=== PATIENT | male | born 1955 | race Caucasian/White ===

== ENCOUNTER 2017-05-12 18:59 | Emergency (ER) | payer OTHER ==
[~2017-05-12] VITALS: Ht 188 cm; Wt 113.4 kg
[2017-05-12 19:10] VITALS: BP 139/69
[2017-05-12 19:57] LABS: CALCIUM 9.4 mg/dL (8.5-10.1); CREATININE 1.2 mg/dL (0.7-1.3); GFR 61.8; POTASSIUM 4.3 mmol/L (3.5-5.1)
[2017-05-12 20:03] LABS: ALBUMIN 3.9 g/dL (3.4-5.0); DIRECT BILIRUBIN 0.1 mg/dL (0.0-0.2); TOTAL BILIRUBIN 0.2 mg/dL (0.2-1.0); TOTAL PROTEIN 7.6 g/dL (6.4-8.2)
[2017-05-12 20:08] LABS: INR 1.1 (0.8-1.1); PROTHROMBIN TIME PATIENT 13.5 SEC (11.7-14.0)
--- NOTE | 2017-05-12 20:10 | RAD ---
CT head without contrast History: Seizure. Comparison: None. Exposure: One or more of the following individualized dose reduction techniques were utilized for this examination: 1. Automated exposure control 2. Adjustment of the mA and/or kV according to patient size 3. Use of iterative reconstruction technique Procedure: Axial images are obtained of the head from the skull base through the vertex without IV contrast. Findings: The ventricles and sulci are normal for the patient's age. No mass-effect, intracranial mass, midline shift, hemorrhage or obvious acute infarction is identified. Basilar cisterns are patent. Bone windows demonstrate no significant calvarial abnormality. The visualized paranasal sinuses appear clear. Impression: 1. No acute intracranial process. Electronically signed by: Conor Cohn MD (05/12/2017 8:07 PM) [facility]
[2017-05-12 20:54] LABS: BASO % 0 % (0-3); EOS % 1 % (0-3); HEMATOCRIT 39.8 % (39.0-53.0); HEMOGLOBIN 13.6 g/dL (13.0-17.5); LYMPH # 1.1 x10^3/uL (1.0-4.8); LYMPH % 7 % (24-48); MEAN CORPUSCULAR HEMOGLOBIN 30 pg (25-35); MEAN CORPUSCULAR HGB CONC 34 g/dL (31-37); MEAN CORPUSCULAR VOLUME 87 fL (79-100); MONO % 8 % (0-9); NEUT % 85 % (31-73); PLATELET COUNT 244 x10^3/uL (140-400); RED BLOOD COUNT 4.55 x10^6/uL (4.30-5.70); RED CELL DISTRIBUTION WIDTH 13.2 % (11.5-14.5); WHITE BLOOD COUNT 15.7 x10^3/uL (4.0-11.0)
--- NOTE | 2017-05-12 21:06 | PHYS DOC ---
Past Medical History Past Medical History: High Cholesterol, Hypertension, Seizure Additional Past Surgical Histo: right shoulder x 3 total; left foot Alcohol Use: Rarely Drug Use: None Adult General Chief Complaint Chief Complaint: SEIZURE HPI HPI 61-year-old male presenting to the emergency department today with a witnessed reported seizure at home. He has a history of having seizures in the past about 5 years ago where he had 2 consecutive seizures and was placed on Dilantin however after a long period of not having seizures was taking off the medication. The is here with him who witnessed the seizure who reports him getting very stiff for approximately a minute. Afterwards the patient was postictal. He then was feeling much better. He denies head injury. Prior to this he has been feeling well. He denies any other complaints. Onset today. Location brain. Duration intermittent. No alleviating or exacerbating factors present. Review of systems is negative for chest pain, shortness of breath, nausea vomiting fevers chills. He denies any recent head trauma. All other review of systems is negative unless otherwise noted in history of present illness. ED course: 61-year-old male presenting to the emergency department today for seizure-like activity. Patient was afebrile with mild tachycardia upon examination. Pertinent physical examination shows a normal neurologic examination. Head CT obtained which was unremarkable. Blood work unremarkable. I discussed the case with Dr. Gotti who recommended initiating the patient on Keppra 500 twice a day follow-up with him in clinic within the next week. The patient was then discharged home in stable condition to follow up with their primary care physician over the next 2-3 days. They were to return if their symptoms worsened or if they were concerned for any reason. [id number] discharge instructions and return precautions were given. Patient's questions were answered to their satisfaction. Patient is comfortable plan. Review of Systems Review of Systems SEE ABOVE. Allergies Allergies Allergies Coded Allergies Type Severity Reaction Last Updated Verified levofloxacin Allergy Intermediate Swelling 05/12/17 Yes niacin Allergy Intermediate Swelling 05/12/17 Yes Physical Exam Physical Exam SEE ABOVE Constitutional: Well developed, well nourished, no acute distress, non-toxic appearance. [] HENT: Normocephalic, atraumatic, bilateral external ears normal, oropharynx moist, no oral exudates, nose normal. [] no abrasions, lacerations, echymosis or evidence of trauma to the head or neck. Eyes: PERRLA, EOMI, conjunctiva normal, no discharge. [] Neck: Normal range of motion, no tenderness, supple, no stridor. [] Cardiovascular:Heart rate regular rhythm, no murmur [] Lungs & Thorax: Bilateral breath sounds clear to auscultation [] Abdomen: Bowel sounds normal, soft, no tenderness, no masses, no pulsatile masses. [] Skin: Warm, dry, no erythema, no rash. [] Back: No tenderness, no CVA tenderness. [] Extremities: No tenderness, no cyanosis, no clubbing, ROM intact, no edema. [] Neurologic: Mental status: Awake oriented and alert x3 Cranial nerves: Extraocular movements intact, eyebrows florina bilaterally smile symmetric, uvula elevation, shoulder shrug intact, tongue protrusion normal DTRs: 2+ Sensation: equal and normal in all extremities Strength: 5/5 in upper and lower extremities bilaterally Psychologic: Affect normal, judgement normal, mood normal. [] Current Patient Data Vital Signs Vital Signs Date Time Temp Pulse Resp B/P (MAP) Pulse Ox O2 Delivery O2 Flow Rate FiO2 05/12/17 19:10 97.2 104 20 139/69 (92) 95 Room Air 97.2 Lab Values Laboratory Tests Test 05/12/17 19:15 05/12/17 20:40 Prothrombin Time 13.5 SEC (11.7-14.0) Prothrombin Time INR 1.1 (0.8-1.1) PTT 27 SEC (24-38) Sodium Level 138 mmol/L (136-145) Potassium Level 4.3 mmol/L (3.5-5.1) Chloride Level 102 mmol/L (98-107) Carbon Dioxide Level 25 mmol/L (21-32) Anion Gap 11 (6-14) Blood Urea Nitrogen 15 mg/dL (8-26) Creatinine 1.2 mg/dL (0.7-1.3) Estimated GFR (Cockcroft-Gault) 61.8 Glucose Level 120 mg/dL (70-99) H Lactic Acid Level 4.7 mmol/L (0.4-2.0) *H Calcium Level 9.4 mg/dL (8.5-10.1) Total Bilirubin 0.2 mg/dL (0.2-1.0) Direct Bilirubin 0.1 mg/dL (0.0-0.2) Aspartate Amino Transferase (AST) 23 U/L (15-37) Alanine Aminotransferase (ALT) 32 U/L (16-63) Alkaline Phosphatase 87 U/L (46-116) Total Protein 7.6 g/dL (6.4-8.2) Albumin 3.9 g/dL (3.4-5.0) White Blood Count 15.7 x10^3/uL (4.0-11.0) H Red Blood Count 4.55 x10^6/uL (4.30-5.70) Hemoglobin 13.6 g/dL (13.0-17.5) Hematocrit 39.8 % (39.0-53.0) Mean Corpuscular Volume 87 fL (79-100) Mean Corpuscular Hemoglobin 30 pg (25-35) Mean Corpuscular Hemoglobin Concent 34 g/dL (31-37) Red Cell Distribution Width 13.2 % (11.5-14.5) Platelet Count 244 x10^3/uL (140-400) Neutrophils (%) (Auto) 85 % (31-73) H Lymphocytes (%) (Auto) 7 % (24-48) L Monocytes (%) (Auto) 8 % (0-9) Eosinophils (%) (Auto) 1 % (0-3) Basophils (%) (Auto) 0 % (0-3) Neutrophils # (Auto) 13.3 x10^3uL (1.8-7.7) H Lymphocytes # (Auto) 1.1 x10^3/uL (1.0-4.8) Monocytes # (Auto) 1.2 x10^3/uL (0.0-1.1) H Eosinophils # (Auto) 0.1 x10^3/uL (0.0-0.7) Basophils # (Auto) 0.0 x10^3/uL (0.0-0.2) Segmented Neutrophils % 84 % (35-66) H Lymphocytes % 7 % (24-48) L Monocytes % 8 % (0-10) Eosinophils % 1 % (0-5) Platelet Estimate Adequate (ADEQUATE) Laboratory Tests 05/12/17 20:40 Laboratory Tests 05/12/17 19:15 EKG EKG [] Radiology/Procedures Radiology/Procedures [] Course & Med Decision Making Course & Med Decision Making Pertinent Labs and Imaging studies reviewed. (See chart for details) [] Dragon Disclaimer Dragon Disclaimer This electronic medical record was generated, in whole or in part, using a voice recognition dictation system. Departure Departure Impression: Primary Impression: Seizure Disposition: HOME, SELF-CARE Condition: STABLE Referrals: NO PCP (PCP) CHARITY HIRSCH MD Patient Instructions: Seizure, Adult Additional Instructions: Follow-up with our neurologist Dr. Gotti in 7 days. Thank you for allowing us to participate in your care today. Call your Primary Doctor tomorrow and inform them of your visit today. If you do not have a primary care provider you can ask for a list of our primary care providers. Return to the emergency department you have any new or concerning findings. This should be evaluated by the primary care physician and any necessary consulting services for continued management within a few days after discharge. Return to emergency room if you have any new or concerning symptoms including but not limited to fever, chills, nausea, vomiting, intractable pain, any new rashes, chest pain, shortness of air, uncontrolled bleeding, difficulty breathing, and/or vision loss. Scripts Levetiracetam (KEPPRA) 500 Mg Tablet 1 TAB PO BID, #20 TAB 0 Refills Prov: CARLO ZHU MD 05/12/17 CARLO ZHU MD May 12, 2017 21:06
[2017-05-12] MEDS ORDERED: LEVE500T56 PO (21:09)
[2017-05-12 21:35] LABS: % EOS 1 % (0-5); PLT ESTIMATE ADEQUATE (ADEQUATE)
--- NOTE | 2017-05-13 07:21 | EKG ---
[facility] [address] [place] [address] Test Date: 2017-05-12 Test Time: 19:20:14 Pat Name: GUTIERREZ KEYS Department: Room: Gender: M [employer] C[employer] Operator: : [id number] Requested By: CARLO ZHU Order Number: [id number] Reading MD: Anastasia Fields Measurements Intervals Omega Rate: 101 P: 19 [place]: 136 QRS: -12 QRSD: 80 T: 2 QT: 360 QTc: 468 Interpretive Statements SINUS TACHYCARDIA ATRIAL PREMATURE COMPLEX(ES) LEFTWARD AXIS Electronically Signed On 05-15-2017 10:09:36 CDT by Anastasia Fields
== END 2017-05-12 21:31 | disposition home or self-care (01) ==
LOC: ER 18:59
DX: R56.9 Unspecified convulsions (principal); R00.0 Tachycardia, unspecified; E78.00 Pure hypercholesterolemia, unspecified; I10 Essential (primary) hypertension; Z79.899 Other long term (current) drug therapy; Z88.1 Allergy status to other antibiotic agents; Z88.8 Allergy status to other drugs, medicaments and biological substances
CPT/HCPCS: 36415; 70450; 80048; 80076; 83605; 85007; 85025; 85610; 85730; 93005; 99285-25

== ENCOUNTER → 2017-06-03 | Outpatient (CLI) | payer OTHER ==
[2017-05-12 19:10] VITALS: BP 139/69
[~2017-06-03] MED LIST: GADOBUTROL 7.5 MMOL/7.5 ML VIAL IV ONE; KRIL500C PO; LEVE500T56 PO; LOSA1TAB18 PO; OMEP20TA8 PO; SIMV40TA3 PO
--- NOTE | 2017-06-03 12:04 | KCIC ---
MRI Brain with and without contrast History: Epilepsy, seizures 6 years ago and then one month ago Technique: Multiplanar, multi sequential pre and postcontrast MR imaging was performed of the brain. Contrast: 11 cc Gadavist Comparison: February 13, 2011 Findings: There is some motion degradation. There is no evidence of recent infarct or cytotoxic edema. The ventricles, sulci, and cisterns are within normal limits in size and configuration. There is no significant midline shift, intraaxial mass effect, or focal abnormal extra-axial fluid collection. There is no new significant signal abnormality of the brain parenchyma. Small 0.7 cm nonenhancing probable cyst of the right temporal lobe is stable. There is no nodular parenchymal or leptomeningeal enhancement. There is preservation of the major intracranial flow-voids at the skull base. 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 There is no significant abnormality of the pineal gland or pituitary gland. There is moderate left frontal sinus mucosal thickening. There is patchy overall mild ethmoid air cell mucosal thickening greater posteriorly, also very minimally of the sphenoid sinus. The mastoid air cells are aerated. There is preserved marrow signal of the clivus. 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 Impression: 1. There is no new significant intracranial abnormality. 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 Small likely cyst of the right temporal lobe is stable. 2. There is moderate left frontal sinus mucosal thickening, minimally of the ethmoid air cells. Electronically signed by: Alvaro Chua MD (06/03/2017 12:00 PM) [id number]
== END | disposition home or self-care (01) ==
LOC: KCIC MRI 08:54
PROVIDERS: ATTEND Psychiatry & Neurology Neurology with Special Qualifications in Child Neurology
DX: G40.309 Generalized idiopathic epilepsy and epileptic syndromes, not intractable, without status epilepticus (principal)
CPT/HCPCS: 70553; A9585

== ENCOUNTER 2017-09-26 07:37 | Emergency (ER) | payer OTHER ==
[2017-09-26] MEDS: IPRATRPIUM/ALBUTEROL 0.5/2.5MG 3 ML NEBU. NEB (08:08)
[2017-09-26 08:16] LABS: INFLUENZA A PATIENT NEGATIVE (NEGATIVE); INFLUENZA B PATIENT NEGATIVE (NEGATIVE); OBC FLU VALID
== END 2017-09-26 08:56 | disposition home or self-care (01) ==
LOC: ER 07:37
DX: J40 Bronchitis, not specified as acute or chronic (principal); I10 Essential (primary) hypertension; E78.00 Pure hypercholesterolemia, unspecified; K21.9 Gastro-esophageal reflux disease without esophagitis
CPT/HCPCS: 71046; 87804; 87804-59; 94640; 99285-25; J7620